=== PATIENT | female | born 1955 | race Caucasian/White ===

== ENCOUNTER 2017-03-05 16:08 | Inpatient (IN) | payer MEDICARE ==
[~2017-03-05] VITALS: Ht 154.9 cm; Wt 90.5 kg
[2017-03-13] MEDS ORDERED: CLON0.2T PO (11:51)
[2017-03-13] MEDS ORDERED: MAGN1TAB14 PO (11:51)
[2017-03-13] MEDS ORDERED: HYDR25TA5 PO (11:51)
[2017-03-13] MEDS ORDERED: CYAN1000P IM (11:51)
[2017-03-13] MEDS ORDERED: TIZA4TAB PO (11:51)
[2017-03-13] MEDS ORDERED: ACTO150T PO (11:51)
[2017-03-13] MEDS ORDERED: ACLI1AER2 INH (11:51)
[2017-03-13] MEDS ORDERED: ISOS30TA3 PO (11:51)
[2017-03-13] MEDS ORDERED: ASPI-110 PO (11:51)
[2017-03-13] MEDS ORDERED: MONT10TA4 PO (11:51)
[2017-03-13] MEDS ORDERED: LOSA100T PO (11:51)
[2017-03-13] MEDS ORDERED: ALBU6.7H INH (11:51)
[2017-03-13] MEDS ORDERED: HYDR-3798 PO (11:51)
[2017-03-13] MEDS ORDERED: DULO1CAP2 PO (11:51)
[2017-03-13] MEDS ORDERED: LEVO137T2 PO (11:51)
[2017-03-13] MEDS ORDERED: TRAM50TA PO (11:51)
[2017-03-13] MEDS ORDERED: BUPR300T PO (11:51)
[2017-03-13] MEDS ORDERED: PLAQ200T PO (11:51)
[2017-03-13] MEDS ORDERED: POTA10CA PO (11:51)
[2017-03-13] MEDS ORDERED: CARV25TA PO (11:51)
[2017-03-13] MEDS ORDERED: FURO20TA PO (11:51)
[2017-03-13] MEDS ORDERED: VYTO10TA8 PO (11:51)
[2017-03-13] MEDS ORDERED: INSULIN PUMP SQ (12:59)
[2017-03-14] VITALS (10 sets, daily range): BP systolic 104–157; BP diastolic 55–84; PULSE 68–91; RESP 16–18; TEMP 97–98.7; O2SAT 97–100
[2017-03-14] MEDS ORDERED: PROPOFOL 1000 MG/100 ML INJ 100 ML IV ONE (05:00)
[2017-03-14] MEDS ORDERED: LABETALOL HCL 100 MG/20 ML VIAL IV ONE (05:00)
[2017-03-14] MEDS ORDERED: PHENYLEPHRINE HCL 10 MG/ML VIAL IV ONE (05:00)
[2017-03-14] MEDS ORDERED: HEPARIN SODIUM - SQ 10,000 UNITS/ML VIAL SQ ONE (05:00)
[2017-03-14] MEDS ORDERED: GLYCOPYRROLATE 0.2 MG/ML VIAL IV ONE (05:00)
[2017-03-14] MEDS ORDERED: CALCIUM CHLORIDE 10% SOLN 1 GRAM/10 ML SYR IV ONE (05:00)
[2017-03-14] MEDS ORDERED: PROTAMINE SULFATE 250 MG/25 ML VIAL IV ONE (05:00)
[2017-03-14] MEDS ORDERED: AMINOCAPROIC ACID INJ 250 MG/ML 20 ML VIAL IV ONE ×2 (05:00→07:55)
[2017-03-14] MEDS ORDERED: VECURONIUM BROMIDE 10 MG VIAL IV ONE (05:00)
[2017-03-14] MEDS ORDERED: METOPROLOL TARTRATE 5 MG/5 ML VIAL IV PUSH ONE (05:00)
[2017-03-14] MEDS ORDERED: INSULIN HUMAN REGULAR 1,000 UNITS/10 ML VIAL SQ PRN (06:00)
[2017-03-14] MEDS ORDERED: METOPROLOL TARTRATE 25 MG TAB PO PRN (06:00)
[2017-03-14] MEDS ORDERED: POVIDONE IODINE 5% (ANTISEPSIS KIT) 4 APPLICATIONS EACH NARE PRN (06:00)
[2017-03-14] MEDS ORDERED: LACTATED RINGER'S 1000 ML IV PRN (06:00)
[2017-03-14] MEDS ORDERED: CHLORHEXIDINE GLUCONATE 2 % 1 PACK (2 CLOTHS) TOPICAL PRN (06:00)
[2017-03-14] MEDS ORDERED: INSULIN REGULAR 100 UNITS in NS 100 ML IV SCH (06:00)
[2017-03-14] MEDS ORDERED: CEFAZOLIN 500 MG in NS IRR BTL 500 ML IRRIGATION SCH (06:00)
[2017-03-14] MEDS ORDERED: SODIUM CHLORIDE 0.9% FLUSH 10 ML FLUSH IV FLUSH PRN ×3 (06:00→12:00)
[2017-03-14] MEDS ORDERED: METOPROLOL TARTRATE 25 MG TAB PO SCH (06:00)
[2017-03-14] MEDS ORDERED: CHLORHEXIDINE GLUCONATE 4% SOLN 120 ML BTL TOPICAL SCH (06:00)
[2017-03-14] MEDS ORDERED: ceFAZolin 2 GM PREMIX 50 ML IV SCH (06:00)
[2017-03-14] MEDS ORDERED: SODIUM CHLORID 0.9% 500 ML IV PRN (06:00)
[2017-03-14] MEDS ORDERED: PAPAVERINE 60 MG-NITROGLYCERIN 100 MCG-DILTIAZEM 100 MG in NS 100 ML IRRIGATION SCH ×4 (06:00)
[2017-03-14] MEDS ORDERED: NEOSTIGMINE METHYLSULFATE 10 MG/10 ML VIAL IV PUSH ONE (07:55)
[2017-03-14] MEDS ORDERED: DEXTROSE 5% IN WATER 100ML INJ 100 ML IV ONE (07:56)
[2017-03-14] MEDS ORDERED: CHLORHEXIDINE GLUCONATE 2 % 1 PACK (2 CLOTHS) OTHER ONE (08:13)
--- NOTE | 2017-03-14 08:24 | PD.CAR.PN ---
CVT Progress Note Subjective/Hospital Course: Risk Model and Variables - STS Adult Cardiac Surgery Database Version 2.81 RISK SCORES About the STS Risk Calculator Procedure: CAB Only Risk of Mortality: 1.424% Morbidity or Mortality: 19.471% Long Length of Stay: 7.439% Short Length of Stay: 33.855% Permanent Stroke: 1.873% Prolonged Ventilation: 15.931% DSW Infection: 0.484% Renal Failure: 3.976% Reoperation: 4.048% Objective: Vital Signs Date Time Temp Pulse Resp B/P Pulse Ox O2 Delivery O2 Flow Rate FiO2 03/14/17 06:49 98.7 78 18 134/64 99 Melva Hercules MD Mar 14, 2017 08:24
[2017-03-14] MEDS: MUPIROCIN 2% OINT 22 GM TUBE EACH NARE SCH ×2 (09:00→21:00)
[2017-03-14] MEDS ORDERED: HEPARIN SODIUM - SQ 10,000 UNITS/ML VIAL ONE (09:14)
[2017-03-14] MEDS ORDERED: ceFAZolin 2 GM PREMIX 50 ML ONE (09:14)
[2017-03-14] MEDS ORDERED: VANCOMYCIN HCL 1000 MG VIAL ONE (09:14)
[2017-03-14] MEDS ORDERED: DEXMEDETOMIDINE INJ 200 MCG in SODIUM CHLORIDE 0.9% INJ 50 ML IV SCH (12:00)
[2017-03-14] MEDS ORDERED: CLEVIDIPINE INJ 50 ML IV SCH (12:00)
[2017-03-14] MEDS ORDERED: POTASSIUM CHLORIDE 20 MEQ CONTROLLED RELEASE TAB PO PRN ×2 (12:00)
[2017-03-14] MEDS ORDERED: CALCIUM CHLORIDE INJ 1 GM in SODIUM CHLORIDE 0.9% INJ 100 ML IV PRN (12:00)
[2017-03-14] MEDS ORDERED: DEXTROSE 50% IN WATER 50 ML VIAL(D50) IV PUSH PRN (12:00)
[2017-03-14] MEDS ORDERED: HETASTARCH 6%/LACTAT LYTES INJ 500 ML IV PRN (12:00)
[2017-03-14] MEDS ORDERED: MEPERIDINE HCL 25 MG/ML VIAL IV PRN (12:00)
[2017-03-14] MEDS ORDERED: ACETAMINOPHEN 650 MG SUPP RECTAL PRN (12:00)
[2017-03-14] MEDS ORDERED: POTASSIUM CHLOR 20 MEQ PREMIX 100 ML IV PRN ×3 (12:00)
[2017-03-14] MEDS ORDERED: CALCIUM CHLORIDE 10% 1 GRAM/10 ML VIAL IV PRN (12:00)
[2017-03-14] MEDS ORDERED: MAGNESIUM SULFATE INJ 2 GM in SODIUM CHLORIDE 0.9% INJ 100 ML IV PRN ×4 (12:00)
[2017-03-14 13:00] LABS: BLOOD GAS BASE EXCESS -1.6 mmol/L (-2-2); BLOOD GAS CARBOXYHEMOGLOBIN 1.4 % (0-4); BLOOD GAS HCO3 24 mmol/L (22-26); BLOOD GAS METHEMOGLOBIN 0.9 % (0-2); BLOOD GAS O2 HGB SATURATION 96 % (90-100); BLOOD GAS OXYGEN CONTENT 12.4 Vol % (12.0-20.0); BLOOD GAS PCO2 48 mmHg (38-42); BLOOD GAS PO2 137 mmHg (61-120); TEMP CORR TO 98.6
[2017-03-14 13:01] LABS: CRITICAL VALUE NO; DRAW SITE ART LINE; FIO2 70 %; OXYGEN DEVICE VENTILATOR; STAT NO; VENT SETTINGS 5PEEP/15PS
[2017-03-14 13:09] LABS: HEMATOCRIT 27.4 % (35.0-46.0); REVIEW FLAG FINAL
[2017-03-14] MEDS: ACETAMINOPHEN 1000 MG/100 ML VIAL IV SCH ×2 (13:19→20:49)
[2017-03-14] MEDS ORDERED: MIDAZOLAM HCL 5 MG/5 ML VIAL ONE (13:27)
[2017-03-14] MEDS ORDERED: fentaNYL CITRATE 1000 MCG/20 ML VIAL ONE (13:28)
--- NOTE | 2017-03-14 13:28 | RADRPT ---
EXAM DATE/TIME: 03/14/2017 12:55 [facility] COMPARISON: CHEST PA & LAT, March 13, 2017, 12:42. INDICATIONS : Post CABG. MEDICAL HISTORY : Hypercholesterolemia. Diabetes mellitus type 1. Hypertension. Lupus. SURGICAL HISTORY : Tonsillectomy. Bilateral wrist surgery. Bilateral hand surgery. Left shoulder surgery. ENCOUNTER: Subsequent ACUITY: 3 days PAIN SCORE: Non-responsive. LOCATION: Bilateral chest FINDINGS: A single portable frontal view of the chest shows interval median sternotomy. Tip of the endotracheal tube is 4 cm proximal to the fay. A subxiphoid and left sided thoracostomy tube are noted. [place] stric tube tip is just proximal to the GE junction. The heart is normal in size. Consolidation is see n involving the medial left lung base. The remaining lungs are clear. No pneumothoraces or effusions. CONCLUSION: 1. Interval median sternotomy with life support lines as detailed above. 2. Left basilar atelectasis. 3. No pneumothorax. Ludwin Bangura Jr., MD on March 14, 2017 at 13:25 Board Certified Radiologist. This report was verified electronically.
[2017-03-14 13:31] LABS: BICARBONATE 26.1 MEQ/L (21.0-32.0); MAGNESIUM 2.4 MG/DL (1.5-2.5); POTASSIUM 3.9 MEQ/L (3.5-5.1)
--- NOTE | 2017-03-14 13:44 | PD.OP ---
cc: Brenden Smith MD; Melva Hercules MD Operative Report Date of Surgery: Mar 14, 2017 Preoperative Diagnosis: Postoperative Diagnosis: Procedure: 1. Off-pump Coronary Artery Bypass Grafting x 3 with left internal mammary artery (ANDERSON) to left anterior descending (LAD), reverse saphenous vein graft to OM1, reverse saphenous vein graft to the RCA 2. Left Leg Endoscopic Vein [place] 3. Intraoperative Vein Mapping. . Surgeon: Melva Hercules Head Grower(s): Alice Stephens Operation and Findings: PREPROCEDURE DIAGNOSES 1. Severe Multi Vessel Coronary Artery Disease. 2. CHF 3. Left Carotid Artery Stenosis 4. COPD 5. [place] POSTPROCEDURE DIAGNOSES Same SURGICAL PROCEDURE 1. Off-pump Coronary Artery Bypass Grafting x 3 with left internal mammary artery (ANDERSON) to left anterior descending (LAD), reverse saphenous vein graft to OM1, reverse saphenous vein graft to the RCA 2. Left Leg Endoscopic Vein [place] 3. Intraoperative Vein Mapping. SURGEON Melva Hercules MD MEDICINE MAN TENA Fuentes ANESTHESIA General endotracheal BUSINESS PROCESS ENGINEER PORFIRIO Holt MD PREPARATION ChloraPrep. COUNTS Needle, sponge, and instrument counts were correct. DRAINS Two 32-Brazilian mediastinal tubes. COMPLICATIONS None. INDICATIONS FOR PROCEDURE The patient is a 61 year-old pleasant lady presenting from [place] with chest pain and CHF. Patient was noted to have multi-vessel coronary artery disease. The patient is being brought to the operating room for surgical revascularization therapy. PROCEDURE Patient was brought to the operating room and placed supine on the OR table. Following the induction of adequate general endotracheal anesthesia and placement of appropriate monitoring devices, intraoperative vein mapping was performed which revealed usable-caliber conduit in bilateral lower extremities. The patient was then prepped and draped in standard sterile fashion. Next, 2500 units of intravenous heparin was given. The left greater saphenous vein was harvested endoscopically. This appeared to be a small but useable-caliber conduit. Simultaneously, a median sternotomy was performed and the left internal mammary artery dissected free off the posterior sternal table. The patient was systemically heparinized and anticoagulation monitored by serial ACT measurements. The internal mammary artery had excellent pulsatile flow in it and was a good-caliber conduit. The pericardium was then divided in the midline, the cradle created and targets analyzed. At this point, all anastomoses were performed in a beating-heart fashion using the Maquet stabilizing system. The left internal mammary artery was anastomosed to the mid LAD (1.75 mm) in an end-to-side fashion using 7-0 Prolene. Segment of saphenous vein graft was then anastomosed to the OM1 (1.5 mm) in an end-to-side fashion using 7-0 Prolene. The next segment was anastomosed to RCA (2 mm) in an end-to- side fashion using 7-0 Prolene. The proximal anastomoses were then constructed to the ascending aorta in a running manner using 6-0 Prolene. All anastomotic sites were inspected and appeared to be hemostatic and patent. Protamine solution was given. Strict hemostasis was assured. The closure was undertaken. 2 chest tubes were placed. The pericardium was reapproximated in the midline. The sternum was approximated using sternal wires. The muscular and fascial layer were then closed in 3 layers. The endoscopic vein harvest site was closed in 2 layers. The patient tolerated the procedure well and was transferred to CVICU in stable condition. Melva Hercules MD Mar 14, 2017 13:44
[2017-03-14] MEDS: KETOROLAC TROMETHAMINE 30 MG/ML (IVP) VIAL IV PUSH PRN ×2 (14:48→23:25)
[2017-03-14] MEDS: CLEVIDIPINE INJ 50 ML IV SCH ×3 (14:57→22:00)
[2017-03-14] MEDS ORDERED: NITROGLYCERIN-DEXTROSE INJ 250 ML IV SCH (15:00)
[2017-03-14] MEDS ORDERED: LACTATED RINGER'S 1000 ML INJ 500 ML IV PRN (15:00)
[2017-03-14] MEDS ORDERED: PHENYLEPHRINE INJ 40 MG in DEXTROSE 5% IN WATE 500 ML INJ 496 ML IV SCH ×2 (15:00)
[2017-03-14] MEDS ORDERED: INSULIN REGULAR (IV INFUSION) 100 UNITS in SODIUM CHLORIDE 0.9% INJ 99 ML IV SCH (15:00)
[2017-03-14] MEDS ORDERED: RESP: RACEPINEPHRINE 2.25% 0.5 ML NEB NEB PRN (15:00)
[2017-03-14] MEDS ORDERED: ACETAMINOPHEN 325 MG TAB PO PRN (15:00)
[2017-03-14] MEDS ORDERED: METOPROLOL TARTRATE 5 MG/5 ML VIAL IV PUSH PRN (15:00)
[2017-03-14] MEDS ORDERED: ONDANSETRON HCL 4 MG/2 ML VIAL IV PUSH PRN (15:00)
[2017-03-14] MEDS: MORPHINE SULFATE 4 MG/ML INJ IV PRN ×3 (15:20→18:53)
[2017-03-14] MEDS ORDERED: DOPamine INJ PREMIX 500 ML IV SCH (16:00)
[2017-03-14] MEDS ORDERED: EPINEPHrine (1:1000) INJ 4 MG in DEXTROSE 5% IN WATER INJ 246 ML IV SCH ×2 (16:00)
[2017-03-14] MEDS ORDERED: DOBUTamine PREMIX DRIP 250 ML IV SCH (16:00)
[2017-03-14] MEDS ORDERED: RESP: ALBUTEROL 2.5 MG/IPRATROPIUM 0.5 MG NEB (PRN) NEB (16:00)
[2017-03-14] MEDS ORDERED: FUROSEMIDE 20 MG/2 ML VIAL IV PUSH ONE (16:00)
[2017-03-14] MEDS: RESP: ALBUTEROL 2.5 MG/IPRATROPIUM 0.5 MG NEB (SCH) NEB ×2 (16:50→21:10)
[2017-03-14] MEDS: ceFAZolin 2 GM PREMIX 50 ML IV SCH ×2 (16:51→23:24)
[2017-03-14] MEDS: hydrALAZINE HCL 20 MG/ML VIAL IV PRN (20:50)
[2017-03-14] MEDS: AMIODARONE 200 MG TAB PO SCH (20:50)
[2017-03-14] MEDS: SODIUM CHLORIDE 0.9% FLUSH 10 ML FLUSH IV FLUSH SCH (20:50)
[2017-03-15] VITALS (13 sets, daily range): BP systolic 123–185; BP diastolic 55–98; PULSE 86–115; RESP 16–18; TEMP 98.3–98.9; O2SAT 95–100
[2017-03-15] MEDS: CLEVIDIPINE INJ 50 ML IV SCH ×4 (01:23→08:56)
[2017-03-15] MEDS: ACETAMINOPHEN 1000 MG/100 ML VIAL IV SCH ×2 (02:24→07:52)
[2017-03-15] MEDS: RESP: ALBUTEROL 2.5 MG/IPRATROPIUM 0.5 MG NEB (SCH) NEB ×4 (03:36→20:03)
[2017-03-15 04:53] LABS: BICARBONATE 24.8 MEQ/L (21.0-32.0); MAGNESIUM 1.9 MG/DL (1.5-2.5); POTASSIUM 3.8 MEQ/L (3.5-5.1)
[2017-03-15 05:16] LABS: HEMATOCRIT 28.5 % (35.0-46.0); MEAN CORPUSCULAR HEMOGLOBIN 26.1 PG (27.0-34.0); MEAN CORPUSCULAR HGB CONC 33.5 % (32.0-36.0); PLATELET COUNT 169 TH/MM3 (150-450); RED BLOOD COUNT 3.66 MIL/MM3 (4.00-5.30); RED CELL DISTRIBUTION WIDTH 15.5 % (11.6-17.2); REVIEW FLAG FINAL; WHITE BLOOD COUNT 8.9 TH/MM3 (4.0-11.0)
--- NOTE | 2017-03-15 05:53 | RADRPT ---
EXAM DATE/TIME: 03/15/2017 04:37 [facility] COMPARISON: CHEST SINGLE AP, March 14, 2017, 12:55. INDICATIONS : Evaluate after respiratory failure. MEDICAL HISTORY : Hypertension. Hypercholesterolemia. Diabetes mellitus type II. Lupus SURGICAL HISTORY : Tonsillectomy. CABG. Bilateral hand, Bilateral Wrist, Left shoulder, ENCOUNTER: Subsequent ACUITY: 4 - 6 days PAIN SCORE: Non-responsive. LOCATION: Bilateral chest FINDINGS: Mild consolidation left lung base. Median sternotomy changes are again noted. Mediastinal drain and l eft chest tube remain in place. No pneumothorax. No pleural effusion demonstrated. Heart size stable, within normal limits. Left subclavian central venous catheter with tip in the superior vena cava. Endotracheal tube and nasogastric tube has been removed. CONCLUSION: 1. Endotracheal tube and nasogastric tube out. 2. Mediastinal drain left chest tube and left subclavian central venous catheter unchanged. 3. Clearing lungs, currently just mild atelectasis at the left lung base. No pneumothorax. Chad Boswell MD on March 15, 2017 at 5:49 Board Certified Radiologist. This report was verified electronically.
[2017-03-15] MEDS: PANTOPRAZOLE SOD 40 MG DELAYED RELEASE TAB PO SCH (06:08)
[2017-03-15] MEDS: ACETAMINOPHEN/HYDROcodone 325 MG/5 MG TAB PO PRN ×5 (06:09→19:32)
[2017-03-15] MEDS: ceFAZolin 2 GM PREMIX 50 ML IV SCH ×2 (07:53→15:51)
[2017-03-15] MEDS: KETOROLAC TROMETHAMINE 30 MG/ML (IVP) VIAL IV PUSH PRN (07:53)
[2017-03-15] MEDS: CLOPIDOGREL 75 MG TAB PO SCH (08:55)
[2017-03-15] MEDS: AMIODARONE 200 MG TAB PO SCH ×2 (08:56→20:46)
[2017-03-15] MEDS: ASPIRIN 81 MG CHEW TAB PO SCH (08:56)
[2017-03-15] MEDS: SODIUM CHLORIDE 0.9% FLUSH 10 ML FLUSH IV FLUSH SCH ×2 (08:59→20:46)
[2017-03-15] MEDS: MUPIROCIN 2% OINT 22 GM TUBE EACH NARE SCH ×2 (08:59→21:00)
[2017-03-15] MEDS ORDERED: GLUCAGON 1 MG/ML VIAL OTHER PRN (09:45)
[2017-03-15] MEDS ORDERED: CARVEDILOL 6.25 MG TAB PO SCH (09:45)
[2017-03-15] MEDS ORDERED: BISACODYL 10 MG SUPP RECTAL PRN (09:45)
[2017-03-15] MEDS ORDERED: cloNIDine HCL 0.1 MG TAB PO PRN (09:45)
[2017-03-15] MEDS ORDERED: NON-FORMULARY DRUG (Levothyroxine 137 MCG) PO SCH (09:45)
[2017-03-15] MEDS ORDERED: SOD PHOSPHATE/SOD BIPHOSPHATE (ADULT) ENEMA 133ML RECTAL PRN (09:45)
[2017-03-15] MEDS ORDERED: DEXTROSE 50% IN WATER 50 ML VIAL(D50) IV PRN (09:45)
[2017-03-15] MEDS ORDERED: FUROSEMIDE 20 MG/2 ML VIAL IV PUSH ONE (10:00)
[2017-03-15] MEDS ORDERED: INSULIN DETEMIR 100 UNITS/ML VIAL SQ ONE (10:00)
[2017-03-15] MEDS: LOSARTAN 50 MG TAB PO SCH (10:28)
[2017-03-15] MEDS: DOCUSATE SODIUM 100 MG CAP PO SCH ×2 (10:28→20:45)
[2017-03-15] MEDS ORDERED: POTASSIUM CHLORIDE 8 MEQ CONTROLLED RELEASE TAB PO ONE (11:00)
[2017-03-15] MEDS: ACLIDINIUM BROMIDE INH SCH ×2 (11:00→21:00)
[2017-03-15] MEDS ORDERED: EPOETIN ALFA 20,000 UNITS/ML VIAL SQ ONE (11:00)
[2017-03-15] MEDS: FERROUS SULFATE 325 MG (65 MG ELEMENTAL IRON) TAB PO SCH ×2 (11:21→15:51)
[2017-03-15] MEDS: DULoxetine HCl DR 60 MG CAP PO SCH (11:22)
[2017-03-15] MEDS: INSULIN ASPART SUPPLEMENTAL SCALE SQ SCH ×4 (11:23→21:27)
[2017-03-15] MEDS: hydrALAZINE HCL 20 MG/ML VIAL IV PRN (12:07)
[2017-03-15] MEDS: cloNIDine HCL 0.2 MG TAB PO SCH ×2 (13:46→16:55)
[2017-03-15] MEDS ORDERED: CARVEDILOL 6.25 MG TAB PO ONE (14:00)
--- NOTE | 2017-03-15 15:29 | PD.CAR.PN ---
CVT Progress Note Subjective/Hospital Course: 61 F/ from [place] with recent chest pain progressive SOB, she was noted to be in CHF and aggressively diuresed, ECH revealed preserved LV function , Cardiac cath in [place] revealed multivessel disease She is a Jehovah witness and researched off pump CABG and was seen and eval for surgery by Dr Diomedes WEINBERG DM ( insulin pump) , HLP, HTN, ASthma, CKD stage 11, hx of gastric ulcer Lupus, hypothyroidism, depression, anxiety, RA , TIA, COPD , Left carotid stenosis surgery : 1. Off-pump Coronary Artery Bypass Grafting x 3 with left internal mammary artery (ANDERSON) to left anterior descending (LAD), reverse saphenous vein graft to OM1, reverse saphenous vein graft to the RCA 03/14 2. Left Leg Endoscopic Vein [place] 3. Intraoperative Vein Mapping. 1500cc crystalloid, 400cc EBL 03/15 pt up in chair , weaning off cleviprex restarted on coreg , clonidine and losartan weaning off insulin gtt, pt will not be allowed to use own insulin pump while in hospital levemir added bid gentle diuresis , aggressive pulm toileting will transfer to stepdown Objective: GENERAL: A&0 x 3 SKIN: Warm and dry. prevena dressing to chest, incision intact left leg HEAD: Normocephalic. EYES: No scleral icterus. No injection or drainage. NECK: Supple, trachea midline. No JVD or lymphadenopathy. CARDIOVASCULAR: Regular rate and rhythm without murmurs, gallops, or rubs. general edema RESPIRATORY: diminsihed n bases Breath sounds equal bilaterally. No accessory muscle use. GASTROINTESTINAL: Abdomen soft, non-tender, nondistended. MUSCULOSKELETAL: No cyanosis, or edema. BACK: Nontender without obvious deformity. No CVA tenderness. Vital Signs Date Time Temp Pulse Resp B/P Pulse Ox O2 Delivery O2 Flow Rate FiO2 03/15/17 12:25 99 Nasal Cannula 2.00 03/15/17 12:25 115 03/15/17 12:25 98.6 115 18 178/98 100 Arterial Line 03/15/17 09:01 99 21 03/15/17 07:00 99 Nasal Cannula 2.00 03/15/17 07:00 98.6 99 18 182/88 99 185/66 03/15/17 07:00 99 03/15/17 04:00 99 Nasal Cannula 4.00 03/15/17 04:00 98.9 98 16 155/77 99 142/56 03/15/17 04:00 92 03/15/17 00:00 96 03/15/17 00:00 98.3 97 16 159/79 99 150/55 03/15/17 00:00 99 Nasal Cannula 4.00 03/14/17 20:00 97 Nasal Cannula 4.00 03/14/17 20:00 97 Nasal Cannula 4.00 03/14/17 20:00 84 03/14/17 20:00 98.6 91 18 153/84 97 03/14/17 16:40 14 03/14/17 15:53 98.6 03/14/17 15:25 16 03/14/17 15:17 14 Labs: Laboratory Tests Test 03/15/17 04:20 White Blood Count 8.9 TH/MM3 (4.0-11.0) Red Blood Count 3.66 MIL/MM3 (4.00-5.30) Hemoglobin 9.6 GM/DL (11.6-15.3) Hematocrit 28.5 % (35.0-46.0) Mean Corpuscular Volume 78.0 FL (80.0-100.0) Mean Corpuscular Hemoglobin 26.1 PG (27.0-34.0) Mean Corpuscular Hemoglobin 33.5 % Concent (32.0-36.0) Red Cell Distribution Width 15.5 % (11.6-17.2) Platelet Count 169 TH/MM3 (150-450) Mean Platelet Volume 11.0 FL (7.0-11.0) Sodium Level 141 MEQ/L (136-145) Potassium Level 3.8 MEQ/L (3.5-5.1) Chloride Level 106 MEQ/L (98-107) Carbon Dioxide Level 24.8 MEQ/L (21.0-32.0) Anion Gap 10 MEQ/L (5-15) Blood Urea Nitrogen 10 MG/DL (7-18) Creatinine 0.79 MG/DL (0.50-1.00) Estimat Glomerular Filtration 74 ML/MIN (>89) Rate Random Glucose 120 MG/DL (74-106) Calcium Level 8.2 MG/DL (8.5-10.1) Magnesium Level 1.9 MG/DL (1.5-2.5) Result Diagram: 03/15/1741903/15/17419 Telemetry: NSR> ST (1) Coronary artery disease (2) S/P CABG x 3 Plan: on ASA plavix, statin , BB gentle diuresis aggressive pulm toileting OOB, ambulate (3) HTN (hypertension) Plan: losartan ( may need to increase dose), BB , clonidine (4) Diabetes mellitus Plan: Insuling SS , levemir resume insulin pump when home (5) Hyperlipemia Plan: statin (6) Hypothyroidism Plan: on synthroid (7) COPD (chronic obstructive pulmonary disease) Plan: nebs, inhalers (8) Refusal of blood transfusions as patient is Denominational Plan: blood loss anemia no blood sticks, epogen given x one dose on ferrous sulfate (9) Left carotid stenosis Plan: will need outpt f/u with Lanie Anguiano Mar 15, 2017 15:29
--- NOTE | 2017-03-15 17:26 | EKG ---
Date Performed: 03/15/2017 Time Performed: 05:45:34 PTAGE: 61 years EKG: Sinus tachycardia Short IN interval Extensive ST-T changes may be due to myocardial ischemi a Abnormal ECG Compared to the PREVIOUS TRACING rate faster DOCTOR: Jeronimo Merchant Interpretating Date/Time 03/15/2017 17:24:24
[2017-03-15] MEDS: INSULIN DETEMIR 100 UNITS/ML VIAL SQ SCH (20:43)
[2017-03-15] MEDS: PRAVASTATIN SOD 40 MG TAB PO SCH (20:44)
[2017-03-15] MEDS: CARVEDILOL 6.25 MG TAB PO SCH (20:45)
[2017-03-15] MEDS: SENNOSIDES 8.6 MG TAB PO SCH (20:45)
[2017-03-15] MEDS: EZETIMIBE 10 MG TAB PO SCH (20:46)
[2017-03-15] MEDS ORDERED: NON-FORMULARY DRUG (Ezetimibe-Simvastatin (Vytorin) 1 TAB) PO SCH (21:00)
[2017-03-16] VITALS (27 sets, daily range): BP systolic 95–154; BP diastolic 54–68; PULSE 64–118; RESP 16–20; TEMP 97.4–98.9; O2SAT 93–100
[2017-03-16] MEDS: ceFAZolin 2 GM PREMIX 50 ML IV SCH (00:03)
[2017-03-16] MEDS: ACETAMINOPHEN/HYDROcodone 325 MG/5 MG TAB PO PRN ×4 (00:03→17:34)
[2017-03-16] MEDS: INSULIN ASPART SUPPLEMENTAL SCALE SQ SCH ×5 (02:00→21:00)
[2017-03-16] MEDS: LEVOTHYROXINE SODIUM 25 MCG TAB PO SCH (06:23)
[2017-03-16] MEDS: LEVOTHYROXINE SODIUM 112 MCG TAB PO SCH (06:23)
[2017-03-16] MEDS: PANTOPRAZOLE SOD 40 MG DELAYED RELEASE TAB PO SCH (06:23)
[2017-03-16] MEDS: RESP: ALBUTEROL 2.5 MG/IPRATROPIUM 0.5 MG NEB (SCH) NEB ×3 (08:33→19:44)
[2017-03-16] MEDS: ACLIDINIUM BROMIDE INH SCH ×2 (09:00→21:00)
[2017-03-16] MEDS: ASPIRIN 81 MG CHEW TAB PO SCH (09:00)
[2017-03-16] MEDS: MAGNESIUM HYDROXIDE SUSP 30 ML CUP PO SCH ×2 (09:00→15:18)
[2017-03-16] MEDS: MUPIROCIN 2% OINT 22 GM TUBE EACH NARE SCH ×2 (09:00→21:00)
[2017-03-16] MEDS: POLYETHYLENE GLYCOL 17 GM PKG PO SCH ×2 (09:00→15:18)
[2017-03-16] MEDS: CLOPIDOGREL 75 MG TAB PO SCH (09:16)
[2017-03-16] MEDS: MULTIVITAMINS/MINERALS THERAPEUTIC TAB PO SCH (09:17)
[2017-03-16] MEDS: AMIODARONE 200 MG TAB PO SCH ×2 (09:17→20:54)
[2017-03-16] MEDS: buPROPion HCL 150 MG EXTENDED RELEASE TAB PO SCH (09:18)
[2017-03-16] MEDS: LOSARTAN 50 MG TAB PO SCH (09:18)
[2017-03-16] MEDS: CARVEDILOL 6.25 MG TAB PO SCH ×2 (09:18→20:55)
[2017-03-16] MEDS: DOCUSATE SODIUM 100 MG CAP PO SCH ×2 (09:18→20:55)
[2017-03-16] MEDS: cloNIDine HCL 0.2 MG TAB PO SCH ×3 (09:18→17:34)
[2017-03-16] MEDS: SODIUM CHLORIDE 0.9% FLUSH 10 ML FLUSH IV FLUSH SCH ×2 (09:19→21:02)
[2017-03-16] MEDS: DULoxetine HCl DR 60 MG CAP PO SCH (09:19)
[2017-03-16] MEDS: INSULIN DETEMIR 100 UNITS/ML VIAL SQ SCH ×2 (09:26→21:00)
[2017-03-16] MEDS: FERROUS SULFATE 325 MG (65 MG ELEMENTAL IRON) TAB PO SCH ×2 (12:04→17:34)
--- NOTE | 2017-03-16 12:47 | PD.CAR.PN ---
CVT Progress Note CVT: POD #: 2 Subjective/Hospital Course: 61 F/ from [place] with recent chest pain progressive SOB, she was noted to be in CHF and aggressively diuresed, ECH revealed preserved LV function , Cardiac cath in [place] revealed multivessel disease She is a Jehovah witness and researched off pump CABG and was seen and eval for surgery by Dr Diomedes WEINBERG DM ( insulin pump) , HLP, HTN, ASthma, CKD stage 11, hx of gastric ulcer Lupus, hypothyroidism, depression, anxiety, RA , TIA, COPD , Left carotid stenosis surgery : 1. Off-pump Coronary Artery Bypass Grafting x 3 with left internal mammary artery (ANDERSON) to left anterior descending (LAD), reverse saphenous vein graft to OM1, reverse saphenous vein graft to the RCA 03/14 2. Left Leg Endoscopic Vein [place] 3. Intraoperative Vein Mapping. 1500cc crystalloid, 400cc EBL 03/15 pt up in chair , weaning off cleviprex restarted on coreg , clonidine and losartan weaning off insulin gtt, pt will not be allowed to use own insulin pump while in hospital levemir added bid gentle diuresis , aggressive pulm toileting will transfer to stepdown 03/16/17 Doing well, no complaints Hypertensive Objective: Vital Signs Date Time Temp Pulse Resp B/P Pulse Ox O2 Delivery O2 Flow Rate FiO2 03/16/17 12:08 17 03/16/17 12:00 76 03/16/17 11:00 97.4 78 19 111/65 96 03/16/17 11:00 81 03/16/17 10:00 100 03/16/17 09:00 118 03/16/17 08:34 97 21 03/16/17 08:00 92 03/16/17 07:00 98.4 95 20 154/54 98 03/16/17 07:00 90 03/16/17 07:00 90 03/16/17 06:00 89 03/16/17 05:00 81 03/16/17 04:00 92 03/16/17 03:59 16 03/16/17 03:00 98.9 97 16 120/64 93 03/16/17 03:00 88 03/16/17 02:01 89 03/16/17 01:00 92 03/16/17 00:00 92 03/15/17 23:00 98.5 97 16 134/65 95 03/15/17 23:00 92 03/15/17 22:00 86 03/15/17 21:00 86 03/15/17 20:03 99 21 03/15/17 20:00 88 03/15/17 19:00 94 03/15/17 19:00 98.3 90 16 123/68 99 03/15/17 19:00 99 Room Air 03/15/17 15:24 113 03/15/17 15:21 99 Room Air 03/15/17 15:21 113 03/15/17 15:21 98.6 112 18 152/91 100 Result Diagram: 03/15/1741903/15/17419 Cardiovascular: RRR Telemetry: NSR Pulmonary: Decreased BS bilat GI/: NABS, NT Incision: dry and intact CT: 60ml/ past 6 hours. Plan: Patient may use insulin pump Encourage ambulation D/C chest tubes Increase BP meds including hydralazine, coreg Lasix Anticipate d/c tomorrow or Saturday (1) Coronary artery disease (2) S/P CABG x 3 Plan: on ASA plavix, statin , BB gentle diuresis aggressive pulm toileting OOB, ambulate (3) HTN (hypertension) Plan: losartan ( may need to increase dose), BB , clonidine (4) Diabetes mellitus Plan: Insuling SS , levemir resume insulin pump when home (5) Hyperlipemia Plan: statin (6) Hypothyroidism Plan: on synthroid (7) COPD (chronic obstructive pulmonary disease) Plan: nebs, inhalers (8) 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
[2017-03-16] MEDS: POTASSIUM CHLORIDE 10 MEQ CONTROLLED RELEASE TAB PO SCH ×2 (13:45→20:54)
[2017-03-16] MEDS: hydrALAZINE HCL 10 MG TAB PO SCH ×2 (13:45→17:34)
[2017-03-16] MEDS: FUROSEMIDE 20 MG TAB PO SCH ×2 (13:46→20:56)
[2017-03-16] MEDS: PRAVASTATIN SOD 40 MG TAB PO SCH (20:53)
[2017-03-16] MEDS: EZETIMIBE 10 MG TAB PO SCH (20:53)
[2017-03-16] MEDS: SENNOSIDES 8.6 MG TAB PO SCH (20:54)
[2017-03-16] MEDS: MONTELUKAST SODIUM 10 MG TAB PO SCH (20:55)
[2017-03-17] VITALS (25 sets, daily range): BP systolic 84–146; BP diastolic 45–97; PULSE 61–81; RESP 18–20; TEMP 97.6–98.4; O2SAT 93–100
[2017-03-17] MEDS: LEVOTHYROXINE SODIUM 25 MCG TAB PO SCH (05:30)
[2017-03-17] MEDS: LEVOTHYROXINE SODIUM 112 MCG TAB PO SCH (05:30)
[2017-03-17] MEDS: PANTOPRAZOLE SOD 40 MG DELAYED RELEASE TAB PO SCH (05:30)
[2017-03-17] MEDS: INSULIN ASPART SUPPLEMENTAL SCALE SQ SCH ×4 (06:10→21:00)
[2017-03-17] MEDS: RESP: ALBUTEROL 2.5 MG/IPRATROPIUM 0.5 MG NEB (SCH) NEB (07:53)
[2017-03-17] MEDS: INSULIN DETEMIR 100 UNITS/ML VIAL SQ SCH ×2 (09:00→21:00)
[2017-03-17] MEDS: MUPIROCIN 2% OINT 22 GM TUBE EACH NARE SCH ×2 (09:00→21:00)
[2017-03-17] MEDS: ACLIDINIUM BROMIDE INH SCH ×2 (09:00→21:00)
[2017-03-17] MEDS: SODIUM CHLORIDE 0.9% FLUSH 10 ML FLUSH IV FLUSH SCH ×2 (09:42→20:34)
[2017-03-17] MEDS: ASPIRIN 81 MG CHEW TAB PO SCH (09:43)
[2017-03-17] MEDS: AMIODARONE 200 MG TAB PO SCH ×2 (09:43→20:34)
[2017-03-17] MEDS: cloNIDine HCL 0.2 MG TAB PO SCH ×3 (09:43→17:27)
[2017-03-17] MEDS: hydrALAZINE HCL 10 MG TAB PO SCH ×3 (09:43→17:27)
[2017-03-17] MEDS: buPROPion HCL 150 MG EXTENDED RELEASE TAB PO SCH (09:43)
[2017-03-17] MEDS: POTASSIUM CHLORIDE 10 MEQ CONTROLLED RELEASE TAB PO SCH ×2 (09:43→20:34)
[2017-03-17] MEDS: DULoxetine HCl DR 60 MG CAP PO SCH (09:44)
[2017-03-17] MEDS: CLOPIDOGREL 75 MG TAB PO SCH (09:44)
[2017-03-17] MEDS: LOSARTAN 50 MG TAB PO SCH (09:44)
[2017-03-17] MEDS: CARVEDILOL 6.25 MG TAB PO SCH ×2 (09:44→20:34)
[2017-03-17] MEDS: MULTIVITAMINS/MINERALS THERAPEUTIC TAB PO SCH (09:44)
[2017-03-17] MEDS: DOCUSATE SODIUM 100 MG CAP PO SCH ×2 (09:44→20:34)
[2017-03-17] MEDS: MAGNESIUM HYDROXIDE SUSP 30 ML CUP PO SCH (09:44)
[2017-03-17] MEDS: POLYETHYLENE GLYCOL 17 GM PKG PO SCH (09:44)
--- NOTE | 2017-03-17 09:49 | PD.CAR.PN ---
CVT Progress Note CVT: POD #: 3 Subjective/Hospital Course: 61 F/ from [place] with recent chest pain progressive SOB, she was noted to be in CHF and aggressively diuresed, ECH revealed preserved LV function , Cardiac cath in [place] revealed multivessel disease She is a Jehovah witness and researched off pump CABG and was seen and eval for surgery by Dr Diomedes WEINBERG DM ( insulin pump) , HLP, HTN, ASthma, CKD stage 11, hx of gastric ulcer Lupus, hypothyroidism, depression, anxiety, RA , TIA, COPD , Left carotid stenosis surgery : 1. Off-pump Coronary Artery Bypass Grafting x 3 with left internal mammary artery (ANDERSON) to left anterior descending (LAD), reverse saphenous vein graft to OM1, reverse saphenous vein graft to the RCA 03/14 2. Left Leg Endoscopic Vein [place] 3. Intraoperative Vein Mapping. 1500cc crystalloid, 400cc EBL 03/15 pt up in chair , weaning off cleviprex restarted on coreg , clonidine and losartan weaning off insulin gtt, pt will not be allowed to use own insulin pump while in hospital levemir added bid gentle diuresis , aggressive pulm toileting will transfer to stepdown 03/16/17 Doing well, no complaints Hypertensive 03/17/17 No complaints today, doing well Objective: Vital Signs Date Time Temp Pulse Resp B/P Pulse Ox O2 Delivery O2 Flow Rate FiO2 03/17/17 07:56 99 21 03/17/17 07:00 67 03/17/17 07:00 97.6 76 20 146/70 100 03/17/17 06:00 70 03/17/17 05:00 67 03/17/17 04:00 67 03/17/17 04:00 98.2 70 20 127/70 95 03/17/17 03:00 68 03/17/17 02:00 61 03/17/17 01:00 61 03/17/17 00:00 64 03/17/17 00:00 98.3 61 20 101/58 93 03/16/17 23:00 64 03/16/17 22:00 70 03/16/17 21:00 65 03/16/17 20:00 98.2 77 20 120/68 100 03/16/17 20:00 77 03/16/17 19:49 98 03/16/17 19:00 77 03/16/17 18:42 18 03/16/17 18:00 71 03/16/17 17:36 95/56 03/16/17 17:00 71 03/16/17 16:00 73 03/16/17 15:00 75 03/16/17 15:00 98.2 77 19 100/56 95 03/16/17 14:00 74 03/16/17 13:00 80 03/16/17 12:00 76 03/16/17 11:00 97.4 78 19 111/65 96 03/16/17 11:00 81 03/16/17 10:00 100 Result Diagram: 03/15/1741903/15/17419 Cardiovascular: RRR Telemetry: NSR Pulmonary: CTA GI/: NABS, NT Incision: dry and intact Plan: Diurese Stim BM Increase ambulation Anticipate D/C tomorrow (1) Coronary artery disease (2) S/P CABG x 3 Plan: on ASA plavix, statin , BB gentle diuresis aggressive pulm toileting OOB, ambulate (3) HTN (hypertension) Plan: losartan ( may need to increase dose), BB , clonidine (4) Diabetes mellitus Plan: Insuling SS , levemir resume insulin pump when home (5) Hyperlipemia Plan: statin (6) Hypothyroidism Plan: on synthroid (7) COPD (chronic obstructive pulmonary disease) Plan: nebs, inhalers (8) Refusal of blood transfusions as patient is Zoroastrianism Plan: blood loss anemia no blood sticks, epogen given x one dose on ferrous sulfate (9) Left carotid stenosis Plan: will need outpt f/u with Dr Sarah Ayers,Nelly Glover MD Mar 17, 2017 09:49
[2017-03-17] MEDS: FERROUS SULFATE 325 MG (65 MG ELEMENTAL IRON) TAB PO SCH ×2 (13:53→17:26)
[2017-03-17] MEDS: FUROSEMIDE 40 MG/4 ML VIAL IV PUSH SCH (17:27)
[2017-03-17] MEDS: MONTELUKAST SODIUM 10 MG TAB PO SCH (20:34)
[2017-03-17] MEDS: PRAVASTATIN SOD 40 MG TAB PO SCH (20:34)
[2017-03-17] MEDS: EZETIMIBE 10 MG TAB PO SCH (20:34)
[2017-03-17] MEDS: SENNOSIDES 8.6 MG TAB PO SCH (20:35)
[2017-03-18] VITALS (21 sets, daily range): BP systolic 97–125; BP diastolic 48–70; PULSE 61–90; RESP 17–19; TEMP 97.8–98.8; O2SAT 96–100
[2017-03-18] MEDS: ACETAMINOPHEN/HYDROcodone 325 MG/5 MG TAB PO PRN ×3 (01:24→15:43)
[2017-03-18] MEDS: PANTOPRAZOLE SOD 40 MG DELAYED RELEASE TAB PO SCH (05:54)
[2017-03-18] MEDS: LEVOTHYROXINE SODIUM 25 MCG TAB PO SCH (05:54)
[2017-03-18] MEDS: INSULIN ASPART SUPPLEMENTAL SCALE SQ SCH ×3 (05:54→16:00)
[2017-03-18] MEDS: LEVOTHYROXINE SODIUM 112 MCG TAB PO SCH (05:54)
[2017-03-18] MEDS: LOSARTAN 50 MG TAB PO SCH (09:00)
[2017-03-18] MEDS: INSULIN DETEMIR 100 UNITS/ML VIAL SQ SCH (09:00)
[2017-03-18] MEDS: hydrALAZINE HCL 10 MG TAB PO SCH ×2 (09:00→13:00)
[2017-03-18] MEDS: ACLIDINIUM BROMIDE INH SCH (09:00)
[2017-03-18] MEDS: SODIUM CHLORIDE 0.9% FLUSH 10 ML FLUSH IV FLUSH SCH (09:07)
[2017-03-18] MEDS: FUROSEMIDE 40 MG/4 ML VIAL IV PUSH SCH (09:07)
[2017-03-18] MEDS: POLYETHYLENE GLYCOL 17 GM PKG PO SCH (09:12)
[2017-03-18] MEDS: DULoxetine HCl DR 60 MG CAP PO SCH (09:12)
[2017-03-18] MEDS: POTASSIUM CHLORIDE 10 MEQ CONTROLLED RELEASE TAB PO SCH (09:13)
[2017-03-18] MEDS: CLOPIDOGREL 75 MG TAB PO SCH (09:13)
[2017-03-18] MEDS: DOCUSATE SODIUM 100 MG CAP PO SCH (09:13)
[2017-03-18] MEDS: AMIODARONE 200 MG TAB PO SCH (09:13)
[2017-03-18] MEDS: CARVEDILOL 6.25 MG TAB PO SCH (09:13)
[2017-03-18] MEDS: buPROPion HCL 150 MG EXTENDED RELEASE TAB PO SCH (09:14)
[2017-03-18] MEDS: ASPIRIN 81 MG CHEW TAB PO SCH (09:14)
[2017-03-18] MEDS: cloNIDine HCL 0.2 MG TAB PO SCH ×2 (09:14→13:00)
[2017-03-18] MEDS: MULTIVITAMINS/MINERALS THERAPEUTIC TAB PO SCH (09:14)
[2017-03-18] MEDS: MAGNESIUM HYDROXIDE SUSP 30 ML CUP PO SCH (09:14)
[2017-03-18 11:10] LABS: BICARBONATE 32.1 MEQ/L (21.0-32.0); MAGNESIUM 2.1 MG/DL (1.5-2.5); POTASSIUM 4.7 MEQ/L (3.5-5.1)
[2017-03-18] MEDS: FERROUS SULFATE 325 MG (65 MG ELEMENTAL IRON) TAB PO SCH (13:29)
[2017-03-18] MEDS ORDERED: FERR325T20 PO (15:24)
[2017-03-18] MEDS ORDERED: HYDR-3516 PO (15:24)
[2017-03-18] MEDS ORDERED: COZA50TA PO (15:24)
[2017-03-18] MEDS ORDERED: CARV6.25 PO (15:24)
[2017-03-18] MEDS ORDERED: AMIO200T PO (15:24)
[2017-03-18] MEDS ORDERED: DOCU1CAP39 PO (15:24)
[2017-03-18] MEDS ORDERED: PLAV75TA29 PO (15:24)
[2017-03-18] MEDS ORDERED: THERM PO (15:24)
--- NOTE | 2017-03-18 15:32 | HHI.FF ---
Face to Face Verification Diagnosis: (1) COPD (chronic obstructive pulmonary disease) (2) Coronary artery disease (3) Diabetes mellitus (4) HTN (hypertension) (5) Hypothyroidism (6) Hyperlipemia (7) Left carotid stenosis (8) S/P CABG x 3 Home Health Nursing Order: Signs/symptoms of disease process Diabetic education Wound care and dressing changes Nursing assessment with vital signs Instructions: PREVENA Single Use Negative Wound Therapy System Caregiver Instruction Sheet 1. A Prevena dressing system was applied to the chest incision during surgery , to promote wound healing. It works via a suction device (negative pressure wound therapy) to remove low to moderate levels of exudate (drainage) and infectious materials. We recommend that the device stay in place for up to seven days, from day of surgery. 2. Day of Surgery___/05/23 Day of Removal /____ 3. The dressing should only be removed by a health health care assistant. Please arrange removal of device to coincide with Home Health visit and or with Nursing staff at Rehab 4. If skin reddening or irritation of skin occurs, or excessive drainage, please notify the Cardiovascular Surgeons office at [phone]. 5. Light showering is permissible; however the pump should be disconnected and placed in safe location, where it will not get wet. The dressing should not be exposed to direct spray or submerged in water. No bath tub / shower only. Ensure the end of the tubing attached to the dressing is facing down so that water does not enter the top of the tube. 6. To remove Prevena dressing: press purple button to turn off device / remove the suction. Then disconnect the tubing from the pump. The fixation strips should be stretched away from the skin and the dressing lifted at one corner and peeled back until it has been fully removed. 7. After removal, it is ok to shower daily using liquid dial soap and clean wash cloth, rinse and pat dry, and leave incision open to air dry. For any concerns regarding Prevena dressing, and or wounds, please contact Olga Vann, patient navigator at [phone] or notify the Cardiovascular Surgeons office at [phone]. Incentive spirometry Q1 hr x 10, while awake, also use acapella device hourly whole awake Sternal Breast Bone Precautions: NO pushing or pulling, ( pt must use sternal pillow to support chest with all activities and with coughing ( takes up to 3 months breast bone to heal ) All females to wear sternal bra , launder as needed Daily incision care: ok to shower daily, no tub bath. Wash all incisions with liquid dial soap, clean wash cloth to each site, rinse and pat dry. Observe for any signs of infection, such as drainage which is dark yellow, lee, green or foul smelling. Immediately report to the surgeon any drainage from the chest incision, or legs, and for any abnormal drainage from the chest tube sites. Notify surgeon if any temp >101.5 degrees F. When specialty dressing removed/ or if you do not have one, continue to shower daily as above, then rinse and pat incision dry and paint with betadine daily x 5 days. Allow steri strips to fall off if you have any. Avoid lotions, creams, salves, oils, etc. for the first month Please see attached forms for additional instructions regarding post Open Heart specialty wound vacuum dressings. ESTHER or Prevena , Dressing to be removed by Nursing staff on ____03/21/17___ F/U appointment: as per [place] instructions: PCP in 2 weeks, CV surgeon 1 weeks, [employer] Program Coordinator 3-4 weeks For any questions regarding incisions/ dressing / meds / post op care or above Symptoms, Saturday 8am-5pm Heart & Vascular Surgery Office ( Dr. Hercules & Dr. Ayers), After Hours / Nights (5pm -8am) Weekends and Holidays Please call [facility] ([facility]) Charge Nurse I have seen patient Clementine Starr on 03/18/17. My clinical findings support the need for the requested home health care services because: Deconditioned w/ increased weakness I certify that my clinical findings support that this patient is homebound because: Post-op weakness Lanie Hamilton Mar 18, 2017 15:32
--- NOTE | 2017-03-18 15:36 | HHI.DS ---
Discharge Summary Admission Date Mar 14, 2017 at 05:16 Discharge Date: Mar 18, 2017 Admitting Diagnosis chest pain , CAD (1) COPD (chronic obstructive pulmonary disease) Diagnosis: Principal (2) Coronary artery disease Diagnosis: Principal (3) Diabetes mellitus Diagnosis: Principal (4) Hyperlipemia Diagnosis: Principal (5) Hypothyroidism (6) HTN (hypertension) Diagnosis: Principal (7) Left carotid stenosis Diagnosis: Principal (8) S/P CABG x 3 Diagnosis: Secondary Procedures . Off-pump Coronary Artery Bypass Grafting x 3 with left internal mammary artery (ANDERSON) to left anterior descending (LAD), reverse saphenous vein graft to OM1, reverse saphenous vein graft to the RCA 2. Left Leg Endoscopic Vein [place] 3. Intraoperative Vein Mapping. 03/14 Brief History 61 F/ from [place] with recent chest pain progressive SOB, she was noted to be in CHF and aggressively diuresed, ECH revealed preserved LV function , Cardiac cath in [place] revealed multivessel disease She is a Jehovah witness and researched off pump CABG and was seen and eval for surgery by Dr Hercules [facility] DM ( insulin pump) , HLP, HTN, ASthma, CKD stage 11, hx of gastric ulcer Lupus, hypothyroidism, depression, anxiety, RA , TIA, COPD , Left carotid stenosis surgery : 1. Off-pump Coronary Artery Bypass Grafting x 3 with left internal mammary artery (ANDERSON) to left anterior descending (LAD), reverse saphenous vein graft to OM1, reverse saphenous vein graft to the RCA 03/14 2. Left Leg Endoscopic Vein [place] 3. Intraoperative Vein Mapping. 1500cc crystalloid, 400cc EBL CBC/BMP: 03/15/17 0420 03/18/17 1025 Significant Findings Laboratory Tests Test 03/18/17 10:25 Carbon Dioxide Level 32.1 MEQ/L (21.0-32.0) Estimat Glomerular Filtration 59 ML/MIN (>89) Rate Imaging Last Impressions Chest X-Ray 03/15/17 0500 Signed Impressions: Service Date/Time: Wednesday, March 15, 2017 04:37 - CONCLUSION: 1. Endotracheal tube and nasogastric tube out. 2. Mediastinal drain left chest tube and left subclavian central venous catheter unchanged. 3. Clearing lungs, currently just mild atelectasis at the left lung base. No pneumothorax. Chad Boswell MD PE at Discharge GENERAL: SKIN: Warm and dry. prevena dressing to chest / incision intact to left leg HEAD: Normocephalic. EYES: No scleral icterus. No injection or drainage. NECK: Supple, trachea midline. No JVD or lymphadenopathy. CARDIOVASCULAR: Regular rate and rhythm without murmurs, gallops, or rubs. RESPIRATORY: Breath sounds equal bilaterally. No accessory muscle use. GASTROINTESTINAL: Abdomen soft, non-tender, nondistended. MUSCULOSKELETAL: No cyanosis, or edema. BACK: Nontender without obvious deformity. No CVA tenderness. Hospital Course 03/15 pt up in chair , weaning off cleviprex restarted on coreg , clonidine and losartan weaning off insulin gtt, pt will not be allowed to use own insulin pump while in hospital levemir added bid gentle diuresis , aggressive pulm toileting will transfer to stepdown 03/16/17 Doing well, no complaints Hypertensive 03/17/17 No complaints today, doing well 03/18 doing well on room air feels well stable for dc home today f/u in office next week Pt Condition on Discharge: Good Discharge Disposition: Disch w/ Home Health Serv Discharge Instructions DIET: Follow Instructions for: Heart Healthy Diet, Diabetic Diet Activities you can perform: Shower Only-No Bath Activities to avoid: Lifting/Bending, Strenuous Activity, Driving Additional Activity Instructio: no lifting >8lbs or gallon of milk Lanie Hamilton Mar 18, 2017 15:36
--- NOTE | 2017-03-18 15:37 | HHI.DS ---
Discharge Summary Admission Date Mar 14, 2017 at 05:16 Admitting Diagnosis (1) COPD (chronic obstructive pulmonary disease) Diagnosis: Principal (2) Coronary artery disease Diagnosis: Principal (3) Diabetes mellitus Diagnosis: Principal (4) Hyperlipemia Diagnosis: Principal (5) Hypothyroidism (6) HTN (hypertension) Diagnosis: Principal (7) Left carotid stenosis Diagnosis: Principal (8) S/P CABG x 3 Diagnosis: Secondary Procedures . Off-pump Coronary Artery Bypass Grafting x 3 with left internal mammary artery (ANDERSON) to left anterior descending (LAD), reverse saphenous vein graft to OM1, reverse saphenous vein graft to the RCA 2. Left Leg Endoscopic Vein [place] 3. Intraoperative Vein Mapping. 03/14 Brief History 61 F/ from [place] with recent chest pain progressive SOB, she was noted to be in CHF and aggressively diuresed, ECH revealed preserved LV function , Cardiac cath in [place] revealed multivessel disease She is a Jehovah witness and researched off pump CABG and was seen and eval for surgery by Dr Hercules [facility] DM ( insulin pump) , HLP, HTN, ASthma, CKD stage 11, hx of gastric ulcer Lupus, hypothyroidism, depression, anxiety, RA , TIA, COPD , Left carotid stenosis surgery : 1. Off-pump Coronary Artery Bypass Grafting x 3 with left internal mammary artery (ANDERSON) to left anterior descending (LAD), reverse saphenous vein graft to OM1, reverse saphenous vein graft to the RCA 03/14 2. Left Leg Endoscopic Vein [place] 3. Intraoperative Vein Mapping. 1500cc crystalloid, 400cc EBL CBC/BMP: 03/15/17 0420 03/18/17 1025 Significant Findings Laboratory Tests Test 03/18/17 10:25 Carbon Dioxide Level 32.1 MEQ/L (21.0-32.0) Estimat Glomerular Filtration 59 ML/MIN (>89) Rate PE at Discharge GENERAL: SKIN: Warm and dry. prevena dressing to chest / incision intact to left leg HEAD: Normocephalic. EYES: No scleral icterus. No injection or drainage. NECK: Supple, trachea midline. No JVD or lymphadenopathy. CARDIOVASCULAR: Regular rate and rhythm without murmurs, gallops, or rubs. RESPIRATORY: Breath sounds equal bilaterally. No accessory muscle use. GASTROINTESTINAL: Abdomen soft, non-tender, nondistended. MUSCULOSKELETAL: No cyanosis, or edema. BACK: Nontender without obvious deformity. No CVA tenderness. Pt Condition on Discharge: Good Discharge Disposition: Disch w/ Home Health Serv Discharge Instructions DIET: Follow Instructions for: Heart Healthy Diet, Diabetic Diet Activities you can perform: Shower Only-No Bath Activities to avoid: Lifting/Bending, Strenuous Activity, Driving Additional Activity Instructio: no lifting >8lbs or gallon of milk Follow up Referrals: Appointment for Follow Up Cardiology New Medications: Amiodarone (Amiodarone) 200 Mg Tab 200 MG PO Q12HR heart rhythm #28 Ref 0 TAB Carvedilol (Coreg) 6.25 Mg Tab 25 MG PO Q12HR Blood Pressure Management #60 Ref 2 TAB Clopidogrel (Plavix) 75 Mg Tab 75 MG PO DAILY Blood Clot Prevention #30 Ref 2 TAB Docusate Sodium (Dok) 100 Mg Cap 100 MG PO BID Constipation #60 Ref 0 CAP Ferrous Sulfate (Ferosul) 325 Mg Tablet 325 MG PO BID@12,17 anemia #60 Ref 0 TAB Hydrocodone-Acetaminophen (Hydrocodone-Acetaminophen) 5-325 mg Tab 1 TAB PO Q4HR PRN PAIN SCALE 1 TO 5 #40 Ref 0 TAB Losartan (Cozaar) 50 Mg Tab 50 MG PO DAILY Blood Pressure Management #30 Ref 2 TAB Multiple Vitamins W/ Minerals (Thera M Plus) 1 Tab 1 TAB PO DAILY multi vitamin #30 Ref 2 TAB Continued Medications: Aclidinium Froid Inh (Tudorza Pressair Inh) 400 Mcg/Act Aerp 1 PUFF INH BID COPD Management #1 Ref 0 INHALER Albuterol 6.7 GM Inh (Proventil Hfa 6.7 GM Inh) 90 Mcg/Act Aer 1 PUFF INH Q4H PRN SHORTNESS OF BREATH #1 Ref 0 INHALER Bupropion HCl ER 24 HR (Bupropion HCl ER 24 HR) 300 Mg Tab 300 MG PO DAILY Control Depression Ref 0 TAB Clonidine (Clonidine) 0.2 Mg Tab 0.2 MG PO TID Blood Pressure Management #60 Ref 0 TAB Cyanocobalamin Inj (Cyanocobalamin Inj) 1,000 Mcg/Ml Inj 1000 MCG IM Q30D #1 Ref [address] (Dul[address]etine [address]) 30 Mg Capdr 60 MG PO DAILY #30 Ref 0 CAP Ezetimibe-Simvastatin (Vytorin) 10-20 Mg Tab 1 TAB PO HS #30 Ref 0 TAB Furosemide (Furosemide) 20 Mg Tab 20 MG PO BID #60 Ref 0 TAB Hydroxychloroquine (Plaquenil) 200 Mg Tab 400 MG PO HS Take with food #30 Ref 0 TAB Levothyroxine (Levothyroxine) 137 Mcg Tab 137 MCG PO DAILY Thyroid #30 Ref 0 TAB Magnesium (Magnesium) 400 Mg Tab 400 MG PO DAILY Nutritional Supplement Ref 0 TAB Montelukast (Montelukast) 10 Mg Tab 10 MG PO HS #30 Ref 0 TAB Potassium Chloride ER (Potassium Chloride ER) 10 Meq Cap 10 MEQ PO EVERY OTHER DAY Electrolyte Replacement #30 Ref 0 CAP Risedronate (Actonel) 150 Mg Tab 150 MG PO Q30D Manage Osteoporosis #1 Ref 0 TAB Tizanidine (Tizanidine) 4 Mg Tab 8 MG PO HS Muscle Spasm Ref 0 TAB Tramadol (Tramadol) 50 Mg Tab 50 MG PO Q6H PRN PAIN Ref 0 TAB Discontinued Medications: Aspirin DR (Aspirin 81) 81 Mg Tabdr 2 TAB PO HS Ref 0 TAB Carvedilol (Carvedilol) 25 Mg Tab 50 MG PO BID #60 Ref 0 TAB Hydralazine HCl (Hydralazine HCl) 10 Mg Tablet 10 MG PO TID Hydrochlorothiazide (Hydrochlorothiazide) 25 Mg Tab 25 MG PO DAILY #30 Ref 0 TAB Lanie Hamilton Mar 18, 2017 15:37
[2017-03-19] MEDS ORDERED: ASPI-110 PO (08:27)
== END 2017-03-18 17:34 | disposition home health service (06) | DRG 236 ==
LOC: HSDI 03-14 05:16 → EDUNIT# 03-14 07:30 → HCVR 03-14 12:45 → HCIN 03-15 17:55
PROVIDERS: ADMIT Thoracic Surgery (Cardiothoracic Vascular Surgery); ATTEND Thoracic Surgery (Cardiothoracic Vascular Surgery)
PROC: 06BQ4ZZ Excision of Left Saphenous Vein, Percutaneous Endoscopic Approach (ICD-10-PCS; 2017-03-14)
PROC: 021109W Bypass Coronary Artery, Two Arteries from Aorta with Autologous Venous Tissue, Open Approach (ICD-10-PCS; principal; 2017-03-14 07:30)
PROC: 02100Z9 Bypass Coronary Artery, One Artery from Left Internal Mammary, Open Approach (ICD-10-PCS; 2017-03-14 07:30)
DX: I25.10 Atherosclerotic heart disease of native coronary artery without angina pectoris (principal); I50.9 Heart failure, unspecified; I13.0 Hypertensive heart and chronic kidney disease with heart failure and stage 1 through stage 4 chronic kidney disease, or unspecified chronic kidney disease; E11.22 Type 2 diabetes mellitus with diabetic chronic kidney disease; J44.9 Chronic obstructive pulmonary disease, unspecified; I65.22 Occlusion and stenosis of left carotid artery; D50.0 Iron deficiency anemia secondary to blood loss (chronic); E03.9 Hypothyroidism, unspecified; E78.5 Hyperlipidemia, unspecified; N18.2 Chronic kidney disease, stage 2 (mild); E66.9 Obesity, unspecified; K21.9 Gastro-esophageal reflux disease without esophagitis; L93.0 Discoid lupus erythematosus; G62.9 Polyneuropathy, unspecified; M06.9 Rheumatoid arthritis, unspecified; F41.8 Other specified anxiety disorders; R94.31 Abnormal electrocardiogram [ECG] [EKG]; Z53.1 Procedure and treatment not carried out because of patient's decision for reasons of belief and group pressure; Z68.37 Body mass index [BMI] 37.0-37.9, adult; Z79.4 Long term (current) use of insulin; Z86.73 Personal history of transient ischemic attack (TIA), and cerebral infarction without residual deficits; Z96.41 Presence of insulin pump (external) (internal)
CPT/HCPCS: 36415; 71010; 71020; 76937; 80048; 81001; 82805; 82948; 83735; 85014; 85018; 85025; 85027; 85610; 85730; 86850; 86900; 86901; 86920; 87640; 87641; 93005; 93318; 93880; 93970; 93998; 94002; 94010; 94150; 94640; 94664; 94667; 94668; C1768; C9248; J0131; J0360; J0690; J1644; J1815; J1817; J1885; J1940; J2250; J2270; J2370; J2405; J2440; J2710; J2720; J3010; J3370; J3475; J3480; Q4081

== ENCOUNTER → 2017-03-13 | Outpatient (CLI) | payer MEDICARE ==
[~2017-03-13] MED LIST: ACLI1AER2 INH; ACTO150T PO; ALBU6.7H INH; AMIO200T PO; ASPI-110 PO; BUPR300T PO; CARV25TA PO; CARV6.25 PO; CLON0.2T PO; COZA50TA PO; CYAN1000P IM; DOCU1CAP39 PO; DULO1CAP2 PO; FERR325T20 PO; FURO20TA PO; HEPARIN SODIUM - SQ 10,000 UNITS/ML VIAL ONE; HYDR-3516 PO; HYDR-3798 PO; HYDR25TA5 PO; INSULIN PUMP SQ; ISOS30TA3 PO; LEVO137T2 PO; LOSA100T PO; MAGN1TAB14 PO; MONT10TA4 PO; PLAQ200T PO; PLAV75TA29 PO; POTA10CA PO; POTASSIUM CHLOR 20 MEQ PREMIX 100 ML ONE; THERM PO; TIZA4TAB PO; TRAM50TA PO; VANCOMYCIN HCL 1000 MG VIAL ONE; VYTO10TA8 PO; ceFAZolin 2 GM PREMIX 50 ML ONE; insulin SQ
[2017-03-13 11:52] LABS: BACTERIA, URINE RARE /hpf; BLOOD, URINE NEG (NEG); COMMENT (UR) CULT NOT INDICATED; CULTURE IF INDICATED CULT NOT INDICATED; GLUCOSE,URINE NEG (NEG); HYALINE CAST, URINE 1 /lpf (RARE); KETONE, URINE NEG (NEG); MUCUS URINE FEW /lpf (OCC); NITRITE,URINE NEG (NEG); SQUAMOUS EPITHELIAL CELL URINE <1 /hpf (0-5); URINE COLOR YELLOW (YELLW/STRAW)
[2017-03-13 11:54] LABS: AUTOMATED NEUTROPHIL # 3.7 TH/MM3 (1.8-7.7); BASOPHIL # 0.1 TH/MM3 (0-0.2); BASOPHIL % 0.9 % (0.0-2.0); EOSINOPHIL # 0.3 TH/MM3 (0-0.4); EOSINOPHIL % 4.3 % (0.0-4.0); HEMATOCRIT 35.7 % (35.0-46.0); HEMO FLAGS DIFF FINAL; LYMPH % 35.8 % (9.0-44.0); LYMPHOCYTE # 2.6 TH/MM3 (1.0-4.8); MEAN CELL VOLUME 78.8 FL (80.0-100.0); MEAN CORPUSCULAR HEMOGLOBIN 25.2 PG (27.0-34.0); MONO % 8.3 % (0.0-8.0); NEUT % 50.7 % (16.0-70.0); PLATELET COUNT 166 TH/MM3 (150-450); RED BLOOD COUNT 4.53 MIL/MM3 (4.00-5.30); RED CELL DISTRIBUTION WIDTH 15.4 % (11.6-17.2); WHITE BLOOD COUNT 7.4 TH/MM3 (4.0-11.0)
[2017-03-13 12:03] LABS: APTT (PATIENT) 26.2 SEC (24.3-30.1); PROTHROMBIN TIME - PATIENT 10.7 SEC (9.8-11.6)
[2017-03-13 12:25] LABS: BICARBONATE 31.9 MEQ/L (21.0-32.0); POTASSIUM 3.6 MEQ/L (3.5-5.1)
--- NOTE | 2017-03-13 13:00 | RADRPT ---
EXAM DATE/TIME: 03/13/2017 12:42 [facility] COMPARISON: No previous studies available for comparison. INDICATIONS : Evaluate for pneumonia, pneumothorax or communicable disease. Pre op cabg. MEDICAL HISTORY : None. SURGICAL HISTORY : None. ENCOUNTER: Initial ACUITY: 1 day PAIN SCORE: 0/10 LOCATION: Bilateral chest FINDINGS: PA and lateral views of the chest demonstrate the lungs to be symmetrically aerated without evidence of mass, infiltrate or effusion. The cardiomediastinal contours are unremarkable. Osseous structure s are intact. CONCLUSION: Normal examination for a patient of this age. Mike Guerra MD on March 13, 2017 at 12:58 Board Certified Radiologist. This report was verified electronically.
[2017-03-13 13:35] LABS: MRSA PCR NEGATIVE (NEGATIVE); STAPH AUREUS PCR NEGATIVE (NEGATIVE)
--- NOTE | 2017-03-13 16:06 | RADRPT ---
EXAM DATE/TIME: 03/13/2017 14:51 [facility] COMPARISON: No previous studies available for comparison. INDICATIONS : Pre OP cardiac surgery. MEDICAL HISTORY : Diabetes mellitus type 1. Lupus. Hypercholesterolemia. Hypertension. SURGICAL HISTORY : Tonsillectomy. Bilateral wrist surgery. Bilateral hand surgery. Left shoulder pain. ENCOUNTER: Initial ACUITY: 1 day PAIN SCORE: 0/10 LOCATION: Bilateral neck PEAK SYSTOLIC VELOCITIES (cm/sec): ICA/CCA RATIO: Right: 1.8 Left: 3.1 ICA: Right: 146 Left: 252 CCA: Right: 79 Left: 91 ECA: Right: 156 Left: 115 VERTEBRAL: Right: 78 antegrade Left: 57 antegrade Elevated flow velocities and ICA/CCA ratios have been found to correlate with increased degrees of vessel stenosis, calculated as percentage of diameter relative to a normal segment of distal ICA/CCA FINDINGS: RIGHT CAROTID: Moderate calcific plaque is evident. Stenosis is not felt to be significant.. LEFT CAROTID: There is no hemodynamically significant left carotid stenosis by both velocity and ratio. VERTEBRAL ARTERIES: Antegrade flow is seen in both vertebral arteries. MISCELLANEOUS: None. CONCLUSION: Hemodynamically significant left carotid stenosis. CT angiography may be of benefit. Ashkan Perez MD FACR on March 13, 2017 at 15:59 Board Certified Radiologist. This report was verified electronically.
--- NOTE | 2017-03-13 16:15 | RADRPT ---
EXAM DATE/TIME: 03/13/2017 15:23 [facility] COMPARISON: No previous studies available for comparison. INDICATIONS : PreOp cardiac surgery. MEDICAL HISTORY : Hypercholesterolemia. Diabetes mellitus type 1. Hypertension. Lupus. SURGICAL HISTORY : Tonsillectomy. Bilateral wrist surgery. Bilateral hand surgery. Left shoulder surgery. ENCOUNTER: Initial ACUITY: 1 day PAIN SCORE: 1/10 LOCATION: Bilateral legs. TECHNIQUE: Venous ultrasound of the left and right leg was performed from the inguinal ligament t o the proximal calf. Real-time, color Doppler and spectral tracing, compression and augmentation kurt hniques were used. FINDINGS: RIGHT LEG: There is normal compressibility of the deep venous system from the inguinal region to the proximal calf. No echogenic clot is seen in the lumen of the common femoral, femoral, popliteal, and posterior tibial veins. There is a normal response of the venous system to proximal and distal augmentation and respiration. LEFT LEG: There is normal compressibility of the deep venous system from the inguinal region to t he proximal calf. No echogenic clot is seen in the lumen of the common femoral, femoral, popliteal, and posterior tibial veins. There is a normal response of the venous system to proximal and distal a ugmentation and respiration. CONCLUSION: Negative for deep venous thrombosis. Ashkan Perez MD FACR Board Certified Radiologist. This report was verified electronically.
--- NOTE | 2017-03-13 16:17 | RADRPT ---
EXAM DATE/TIME: 03/13/2017 15:32 [facility] COMPARISON: No previous studies available for comparison. INDICATIONS : PreOp cardiac surgery. MEDICAL HISTORY : Hypercholesterolemia. Diabetes mellitus type 1. Hypertension. Lupus. SURGICAL HISTORY : Tonsillectomy. Bilateral wrist surgery. Bilateral hand surgery. Left shoulder surgery. ENCOUNTER: Initial ACUITY: 1 day PAIN SCORE: 1/10 LOCATION: Bilateral legs. GREATER SAPHENOUS VEIN THIGH: PROXIMAL: Right 6 mm Left 4 mm MID: Right 4 mm Left 4 mm DISTAL: Right 4 mm Left 3 mm CALF: PROXIMAL: Right 4 mm Left 2 mm MID: Right 2 mm Left 2 mm DISTAL: Right 2 mm Left 2 mm FINDINGS: The venous system of the lower extremities are patent by color Doppler imaging. Measurements of the leg veins (in mm) are listed above. CONCLUSION: Venous mapping as described above. Ashkan Perez MD FACR on March 13, 2017 at 16:13 Board Certified Radiologist. This report was verified electronically.
--- NOTE | 2017-03-14 14:00 | EKG ---
Date Performed: 03/13/2017 Time Performed: 11:29:35 PTAGE: 61 years EKG: SINUS BRADYCARDIA WITH SHORT MA INTERVAL MODERATE T-WAVE ABNORMALITY, CONSIDER ANTEROLATERA L ISCHEMIA ABNORMAL ECG NO PREVIOUS TRACING DOCTOR: Payam Gill Interpretating Date/Time 03/14/2017 13:56:34
--- NOTE | 2017-03-19 09:29 | RSPPFT ---
DATE OF PROCEDURE: 03/13/17 COMMENTS: Spirometry with FVC of 1.8 predicted 2.9, FEV1 of 1.5 predicted 2.3, FEV1/FVC ratio 82% predicted 78%. 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
== END ==
LOC: CPRE 10:54
PROVIDERS: ATTEND Thoracic Surgery (Cardiothoracic Vascular Surgery)
DX: Z01.810 Encounter for preprocedural cardiovascular examination (principal); Z01.811 Encounter for preprocedural respiratory examination; Z01.812 Encounter for preprocedural laboratory examination; I25.10 Atherosclerotic heart disease of native coronary artery without angina pectoris; R94.31 Abnormal electrocardiogram [ECG] [EKG]
CPT/HCPCS: 36415; 71020; 80048; 81001; 85025; 85610; 85730; 86850; 86900; 86901; 86920; 87640; 87641; 93005; 93880; 93970; 93998; 94010; J0690; J1644; J3370; J3480